=== PATIENT | female | born 1990 | race Caucasian/White ===

== ENCOUNTER → 2018-07-07 00:12 | Outpatient (CLI) | payer OTHER, SELFPAY ==
[2018-07-06 15:02] VITALS: BMI 26.1
[2018-07-09 08:36] LABS: HPV Reflexed? NOT INDICATED
== END ==
PROVIDERS: Referring Provider Nurse Practitioner; Visit Provider Nurse Practitioner
DX: Z01.419 Encounter for gynecological examination (general) (routine) without abnormal findings (principal)
CPT/HCPCS: 88175; G0145